=== PATIENT | female | born 1955 | race Caucasian/White ===

== ENCOUNTER 2018-01-28 15:33 | Emergency (ER) | payer MEDICARE, MEDICAID, OTHER ==
[2018-01-28 16:11] LABS: ADD MAN DIFF? NO
[2018-01-28 16:12] LABS: BASO # 0.1 x10^3/uL (0.0-0.2); BASO % 1 % (0-3); EOS # 0.2 x10^3/uL (0.0-0.7); EOS % 2 % (0-3); LYMPH # 2.1 x10^3/uL (1.0-4.8); LYMPH % 23 % (24-48); MEAN CORPUSCULAR HEMOGLOBIN 31 pg (25-35); MEAN CORPUSCULAR HGB CONC 34 g/dL (31-37); MEAN CORPUSCULAR VOLUME 92 fL (79-100); MONO # 0.5 x10^3/uL (0.0-1.1); MONO % 6 % (0-9); NEUT # 6.3 x10^3uL (1.8-7.7); NEUT % 69 % (31-73); PLATELET COUNT 135 x10^3/uL (140-400); RED BLOOD COUNT 4.13 x10^6/uL (3.50-5.40); RED CELL DISTRIBUTION WIDTH 13.5 % (11.5-14.5); WHITE BLOOD COUNT 9.2 x10^3/uL (4.0-11.0)
[2018-01-28 16:22] LABS: PROTHROMBIN TIME PATIENT 12.2 SEC (11.7-14.0)
[2018-01-28 16:27] LABS: ANION GAP 8 (6-14); BLOOD UREA NITROGEN 20 mg/dL (7-20); BUN/CREATININE RATIO 20 (6-20); CALCIUM 8.8 mg/dL (8.5-10.1); CARBON DIOXIDE 27 mmol/L (21-32); CHLORIDE 101 mmol/L (98-107); GFR 56.4; GLUCOSE 346 mg/dL (70-99); POTASSIUM 4.4 mmol/L (3.5-5.1); SODIUM 136 mmol/L (136-145)
[2018-01-28 16:28] LABS: D-DIMER 0.29 ug/mlFEU (0.00-0.50)
[2018-01-28 16:33] LABS: ALBUMIN 3.8 g/dL (3.4-5.0); ALBUMIN/GLOBULIN RATIO 1.3 (1.0-1.7); ALK PHOS 83 U/L (46-116); ALT (SGPT) 23 U/L (14-59); AST (SGOT) 16 U/L (15-37); LIPASE 183 U/L (73-393); MAGNESIUM 1.6 mg/dL (1.8-2.4); TOTAL BILIRUBIN 0.4 mg/dL (0.2-1.0); TOTAL PROTEIN 6.7 g/dL (6.4-8.2)
[2018-01-28 16:36] LABS: TROPONINI < 0.017 ng/mL (0.000-0.055)
[2018-01-28 16:41] LABS: NT-PRO BNP 208 pg/mL (0-124)
[2018-01-28 16:41] LABS: CKMB MASS 0.9 ng/mL (0.0-3.6); CREATINE KINASE 64 U/L (26-192)
[2018-01-28 17:26] LABS: BILIRUBIN,URINE NEGATIVE (NEG); CLARITY,URINE CLEAR; COLOR,URINE YELLOW; GLUCOSE,URINE 500 mg/dL (NEG); NITRITE,URINE NEGATIVE (NEG); PH,URINE 5.5; PROTEIN,URINE NEGATIVE (NEG-TRACE)
[2018-01-28] MEDS ORDERED: CONTRAST GIVEN. MC (17:30)
[2018-01-28] MEDS: IOHEXOL 300 MG/ML 100ML VIAL. IV (17:38)
[2018-01-28 17:49] LABS: BACTERIA,URINE FEW /HPF (0-FEW); HYALINE CASTS, URINE OCCASIONAL /HPF; RBC,URINE 0 /HPF (0-2); SQUAMOUS EPITHELIAL CELL,UR FEW /LPF; YEAST,URINE PRESENT /HPF
== END 2018-01-28 18:55 | disposition home or self-care (01) ==
LOC: ER 15:33
DX: R07.2 Precordial pain (principal); J44.9 Chronic obstructive pulmonary disease, unspecified; E11.9 Type 2 diabetes mellitus without complications; E78.00 Pure hypercholesterolemia, unspecified; I10 Essential (primary) hypertension; G89.29 Other chronic pain; Z87.891 Personal history of nicotine dependence
CPT/HCPCS: 36415; 71045; 71260; 80053; 81001; 82553; 83690; 83735; 83880; 84484; 85025; 85379; 85610; 93005; 99285-25; Q9967

== ENCOUNTER → 2018-05-06 | Outpatient (CLI) | payer MEDICARE, MEDICAID ==
[2018-01-28 18:28] VITALS: BP 180/90
[~2018-05-06] MED LIST: ASPI81TA59 PO; ATOR20TA PO; Doxycycline Hyclate PO; INSU100I17 SQ; Insulin Detemir SQ; LISI-338 PO
--- NOTE | 2018-05-06 12:00 | RAD ---
DATE: May 06, 2018 EXAM: DIGITAL SCREEN BILAT W/CAD HISTORY: Screening study. COMPARISON: April 26, 2008 This study was interpreted with the benefit of Computerized Aided Detection (CAD). FINDINGS: Breast Density: FATTY The breast parenchyma is primarily fatty replaced. Breast parenchyma level density A.. There is a new small nodule within the medial aspect of the left breast just inferior to the nipple line. Recommend focal compression views in the CC and MLO projections and a 90 degree lateral medial view for further evaluation followed by left breast sonography. No clustering of pleomorphic microcalcifications are evident. The right breast is unremarkable. IMPRESSION: New nodule of the left breast. Additional imaging is needed. BI-RADS CATEGORY: 0 INCOMPLETE: NEEDS ADDITIONAL IMAGING EVALUATION AND/OR PRIOR MAMMOGRAMS FOR COMPARISON. RECOMMENDED FOLLOW-UP: ADD ADDITIONAL IMAGING PQRS compliance statement: Patient information was entered into a reminder system with a target due date now for the next imaging study. Mammography is a sensitive method for finding small breast cancers, but it does not detect them all and is not a substitute for careful clinical examination. A negative mammogram does not negate a clinically suspicious finding and should not result in delay in biopsying a clinically suspicious abnormality. "Our facility is accredited by the [employer] Mammography [employer]." The patient's breast density may affect the ability of mammography to detect breast cancer. There are 4 categories of breast density, A, B, C and D. Breast density A means that most of the breast tissue is replaced with adipose tissue and therefore is not dense. Breast density B means that the breast tissue is mildly dense and scattered. Breast density C means that the breast tissue is heterogeneously dense. Breast density D means that the breast tissue is very dense. Breast densities especially C and D may decrease the sensitivity of mammography to detect breast cancer. Therefore, the patient may benefit from 3-D breast mammography (3D breast tomography) as a part of their screening mammogram. Insurance may or may not pay for this additional imaging. The patient's breast density based on today's mammogram is category A.
== END | disposition home or self-care (01) ==
LOC: MAMMO 11:03
PROVIDERS: ATTEND Nurse Practitioner Family
DX: Z12.31 Encounter for screening mammogram for malignant neoplasm of breast (principal)
CPT/HCPCS: 77067

== ENCOUNTER → 2018-05-21 | Outpatient (CLI) | payer MEDICARE, MEDICAID ==
[2018-01-28 18:28] VITALS: BP 180/90
--- NOTE | 2018-05-21 12:27 | RAD ---
DATE: 05/21/2018 EXAM: MAMMO ESTRELLA REHANG LT, BREAST LEFT HISTORY: Suspicious screening study COMPARISON: 05/06/2018 This study was interpreted with the benefit of Computerized Aided Detection (CAD). Breast Density: SCATTERED The breast parenchyma shows scattered fibroglandular densities. Breast parenchyma level B. FINDINGS: Additional spot compression views were obtained as well as CC tomosynthesis images. These additional views confirm the presence of a small 5 mm nodule in the medial aspect of the left breast at approximately the 9:00 location. Its margins are slightly lobulated. No microcalcifications are seen. Left breast ultrasound, 05/21/2018: A targeted ultrasound exam of the left breast was performed. At the 9:30 location approximately 5 cm in the nipple there is a small elongated hypoechoic nodule. It is wider than tall. It measures 2 x 4 x 6 mm. There are only faint low level internal echoes. Its margins are slightly lobulated but smooth. There is no significant posterior acoustic enhancement or shadowing. It has a fairly benign appearance and may be a complicated cyst. This probably corresponds to the mammographic abnormality. No other sonographic abnormality was seen in this region of the left breast. IMPRESSION: Probably benign left breast nodule as described above. Follow-up left mammography and ultrasound in 6 months is suggested. BI-RADS CATEGORY: 3 PROBABLY BENIGN FINDING(S)-SHORT INTERVAL FOLLOW-UP SUGGESTED RECOMMENDED FOLLOW-UP: 6M 6 MONTH FOLLOW-UP PQRS compliance statement: Patient information was entered into a reminder system with a target due date for the next mammogram. Mammography is a sensitive method for finding small breast cancers, but it does not detect them all and is not a substitute for careful clinical examination. A negative mammogram does not negate a clinically suspicious finding and should not result in delay in biopsying a clinically suspicious abnormality. "Our facility is accredited by the [employer] Mammography [employer]."
== END | disposition home or self-care (01) ==
LOC: MAMMO 11:06
PROVIDERS: ATTEND Family Medicine
DX: R92.8 Other abnormal and inconclusive findings on diagnostic imaging of breast (principal)
CPT/HCPCS: 76641; 77065; G0279; 77061

== ENCOUNTER 2019-05-31 16:25 | Emergency (ER) | payer OTHER, MEDICAID ==
[~2019-05-31] VITALS: Ht 147.3 cm; Wt 57.6 kg
--- NOTE | 2019-05-31 17:28 | PHYS DOC ---
Past Medical History Past Medical History: Asthma, Bronchitis, COPD, Diabetes-Type II, High Ch olesterol, Hypertension, Other Additional Past Medical Histor: chronic back pain Past Surgical History: Cholecystectomy, Tonsillectomy Additional Past Surgical Histo: , left ankle, rods in right hip, Alcohol Use: None Drug Use: None Adult General Chief Complaint Chief Complaint: MECHANICAL FALL HPI HPI Patient is a 63 year old female patient who presents to the ED today complaining of mild throbbing intermittent right hip, right low back and left knee pain that began a couple minutes prior to coming to the ED after she slipped on a wet floor at the outside of her apartment and fell. Patient denies any loss of consciousness, denies hitting her head on the ground. She states her pain is worse on weight-bearing especially on the right side. She states immobilization relieves some of the pain. Patient denies any pain radiating to bilateral lower extremities. Denies any numbness or tingling to bilateral lower extremities. Denies any loss of bowel bladder function. Review of Systems Review of Systems Constitutional: Denies fever or chills [] Eyes: Denies change in visual acuity, redness, or eye pain [] HENT: Denies nasal congestion or sore throat [] Respiratory: Denies cough or shortness of breath [] Cardiovascular: No additional information not addressed in HPI [] GI: Denies abdominal pain, nausea, vomiting, bloody stools or diarrhea [] : Denies dysuria or hematuria [] Musculoskeletal: Reports left knee pain, right hip pain, right low back pain Integument: Denies rash or skin lesions [] Neurologic: Denies headache, focal weakness or sensory changes [] All other systems were reviewed and found to be within normal limits, except as documented in this note. Allergies Allergies Allergies Coded Allergies Type Severity Reaction Last Updated Verified No Known Drug Allergies 07/01/14 No Physical Exam Physical Exam Constitutional: Well developed, well nourished, no acute distress, non-toxic appearance. [] HENT: Normocephalic, atraumatic, bilateral external ears normal, oropharynx moist, no oral exudates, nose normal. [] Eyes: PERRLA, EOMI, conjunctiva normal, no discharge. [] Neck: Normal range of motion, no tenderness, supple, no stridor. [] Cardiovascular:Heart rate regular rhythm, no murmur [] Lungs & Thorax: Bilateral breath sounds clear to auscultation [] Abdomen: Bowel sounds normal, soft, no tenderness, no masses, no pulsatile masses. [] Skin: Warm, dry, no erythema, no rash. [] Back: No tenderness, no CVA tenderness. [] Extremities: Right hip with no obvious deformity, slight tenderness on palpation of the right lateral proximal hip. Full range of motion to the right hip. +2 right pedal pulse. Left knee with no obvious deformity. Tenderness on palpation of the left anterior knee. Full range of motion to the left knee. +2 left pedal pulse. Cap refill less than 2 seconds and left lower extremity. Sensation intact to the left leg. Neurologic: Alert and oriented X 3, normal motor function, normal sensory function, no focal deficits noted. [] Psychologic: Affect normal, judgement normal, mood normal. [] Current Patient Data Vital Signs Vital Signs Date Time Temp Pulse Resp B/P (MAP) Pulse Ox O2 Delivery O2 Flow Rate FiO2 05/31/19 17:25 97.7 71 16 178/72 (107) 95 Room Air 97.7 EKG EKG [] Radiology/Procedures Radiology/Procedures [] Course & Med Decision Making Course & Med Decision Making Pertinent Labs and Imaging studies reviewed. (See chart for details) This is a 63-year-old female patient presenting to the ED today with left knee pain, right hip pain and low back pain after falling. Right hip x-rays including pelvis, lumbar spine and left knee xrays interpreted by were negative for any acute findings. Patient was discharged to home. Tylenol/Motrin for pain. Follow-up with orthopedic doctor in one week Liliana Disclaimer Dragon Disclaimer This electronic medical record was generated, in whole or in part, using a voice recognition dictation system. Departure Departure Impression: Primary Impression: Fall from standing Additional Impressions: Lumbar contusion Contusion of right hip Contusion of left knee Disposition: 01 HOME, SELF-CARE Condition: STABLE Referrals: NOMI MARTIN (PCP) follow up next week TOM PONCE MD follow up next week Patient Instructions: Contusion, [id number] Additional Instructions: You were evaluated in the emergency room for low back pain, right hip pain and left knee pain after falling, your x-rays of the right hip including pelvis, low back, and left knee were negative for any acute findings. Try to ice and elevate the affected areas. Take Tylenol/Motrin for pain. Follow-up with your own doctor in the next 1-2 weeks. Scripts Cyclobenzaprine Hcl (CYCLOBENZAPRINE HCL) 10 Mg Tablet 1 TAB PO TID, #30 TAB Prov: RACHNA HARDEN ANTONI 05/31/19 Problem Qualifiers Primary Impression: Fall from standing Encounter type: initial encounter Qualified Codes: W19.XXXA - Unspecified fall, initial encounter Additional Impressions: Lumbar contusion Encounter type: initial encounter Qualified Codes: S30.0XXA - Contusion of lower back and pelvis, initial encounter Contusion of right hip Encounter type: initial encounter Qualified Codes: S70.01XA - Contusion of right hip, initial encounter Contusion of left knee Encounter type: initial encounter Qualified Codes: S80.02XA - Contusion of left knee, initial encounter FEDERICARACHNA Brennan ANTONI May 31, 2019 17:28
[2019-05-31] MEDS ORDERED: CYCL10TA2 PO (18:21)
[2019-05-31 18:25] VITALS: BP 167/71
--- NOTE | 2019-05-31 19:15 | RAD ---
EXAM: AP pelvis, AP and lateral views right hip DATE: 05/31/2019 5:05 PM INDICATION: Fall, right hip pain COMPARISON: No Prior FINDINGS/ IMPRESSION: IM nail fixation right hip is partially profiled without definite hardware competition. No acute fracture or dislocation. Iliac crest enthesopathy. Moderate colonic stool content is seen. Vascular calcifications are noted Electronically signed by: Josr Cronin MD (05/31/2019 7:12 PM) [facility]
--- NOTE | 2019-05-31 19:16 | RAD ---
EXAM: AP, oblique, lateral and tangential patellar views left knee DATE: 05/31/2019 5:01 PM INDICATION: Fall, pain COMPARISON: No Prior FINDINGS/ IMPRESSION: No evidence of acute fracture or dislocation. Joint spaces are preserved without significant degenerative/proliferative change. Neutral patellar tracking. No joint effusion. Atherosclerotic vascular calcifications are seen. Electronically signed by: Josr Cronin MD (05/31/2019 7:13 PM) [facility]
--- NOTE | 2019-05-31 19:18 | RAD ---
EXAM: AP, lateral and lumbosacral spot views of the lumbar spine DATE: 05/31/2019 6:29 PM INDICATION: Fall, back pain COMPARISON: No Prior FINDINGS: Vertebral body heights are preserved. Rightward curvature lumbar spine apex L3. Moderate to severe L5-S1 disc height loss. Small endplate osteophytes are seen. Vascular calcifications are seen. No spondylolisthesis. Straightening of the normal lumbar lordosis. Right upper quadrant cholecystectomy clips are seen. Vascular calcifications are seen. Moderate colonic stool content. IMPRESSION: 1. Multilevel spondylosis as above 2. Negative acute fracture or subluxation. Electronically signed by: Josr Cronin MD (05/31/2019 7:15 PM) [facility]
== END 2019-05-31 18:33 | disposition home or self-care (01) ==
LOC: ER 16:25
DX: S30.0XXA Contusion of lower back and pelvis, initial encounter (principal); S70.01XA Contusion of right hip, initial encounter; S80.02XA Contusion of left knee, initial encounter; J44.9 Chronic obstructive pulmonary disease, unspecified; E78.00 Pure hypercholesterolemia, unspecified; I10 Essential (primary) hypertension; E11.9 Type 2 diabetes mellitus without complications; Z90.49 Acquired absence of other specified parts of digestive tract; W01.0XXA Fall on same level from slipping, tripping and stumbling without subsequent striking against object, initial encounter; Y93.89 Activity, other specified; Y92.89 Other specified places as the place of occurrence of the external cause; Y99.8 Other external cause status
CPT/HCPCS: 72100; 73502; 73564; 99284

== ENCOUNTER → 2021-05-10 | Outpatient (CLI) | payer MEDICARE, MEDICAID ==
[~2021-05-10] MED LIST changes: +CYCL10TA19 PO; -LISI-338 PO; +LISI5TAB15 PO
--- NOTE | 2021-05-10 11:16 | RAD ---
PROCEDURE: US BREAST LT, MG DIGITAL BILAT DIAGNOSTIC MAMMO WITH ESTRELLA HISTORY: The patient is 65 years old and is seen for Reason: F/U Left Breast / Spl. Instructions: / History: . COMPARISON: May 21, 2019 mammogram and ultrasound. Mammogram May 06, 2018 TECHNIQUE: CC and MLO views of both breasts were obtained. Images were processed by the [employer] computer-aided detection system. Ultrasound left breast DENSITY: There are scattered fibroglandular densities. FINDINGS: Right mammogram: No developing mass, suspicious calcifications or architectural distortion. Left mammogram: Resolved previously seen left medial breast mass approximately 0.5 cm from the nipple . Lobulated mass within the left medial breast approximately 6 cm from the nipple measures 0.7 cm, po tentially similar compared to prior. Left ultrasound: Previously identified cystic lesion within the left breast is not identified on the current examination. Hypoechoic lesion within the left breast 9:00 position approximately 6 cm from t he nipple measures 0.9 x 0.4 x 0.4 cm. No suspicious posterior shadowing. Potentially corresponding w ith mammographic finding. IMPRESSION: 1. Hypoechoic solid lesion within the left breast 9:00 position potentially corresponding with mammo graphic finding, may represent fibroadenoma. Recommend 6 month left breast ultrasound follow-up. Recommend annual screening mammograms per [employer] guidelines. Patient will be due in six months. BI-RADS category 3 Probably benign Our clinic nurse has been instructed to assist with communicating findings and recommendations to the patient's referring physician and in scheduling follow-up. Patient entered into a reminder system for annual screening mammogram. Electronically signed by: Charles Castrejon DO (05/10/2021 11:13 AM) [id number]
== END ==
LOC: MAMMO 10:48
PROVIDERS: ATTEND Nurse Practitioner Family
DX: N64.89 Other specified disorders of breast (principal)
CPT/HCPCS: 76641; 77066; G0279; 77062

== ENCOUNTER → 2021-10-24 | Outpatient (CLI) | payer MEDICARE, MEDICAID ==
--- NOTE | 2021-10-24 10:57 | RAD ---
EXAMINATION: US BREAST LT CLINICAL HISTORY: Six-month follow-up left breast mass TECHNIQUE: Targeted grayscale scale and color Doppler images medial left breast and left axilla. COMPARISON: Bilateral diagnostic mammogram and left breast ultrasound 05/10/2021 FINDINGS: The previously noted hypoechoic mass at 9:00 position is not definitively visualized on this exam. Th is may be related to interval resolution of a cyst. Redemonstration of nonspecific prominent left axi llary lymph node. IMPRESSION: No evidence of malignancy. BI-RADS ASSESSMENT: Category 2: Benign RECOMMENDATION: Annual bilateral mammogram in 6 months. Targeted left breast ultrasound could also be performed at th at time if there is still mammographic evidence of a mass or asymmetry in the medial left breast. PQRS compliance statement - Patient information was entered into a reminder system with a target due date for the next mammogram. "Our facility is accredited by the [employer] Mammography Program." Electronically signed by: Jeremias Lyons DO (10/24/2021 10:55 AM) [id number]
== END ==
LOC: US 09:45
PROVIDERS: ATTEND Family Medicine
DX: R92.8 Other abnormal and inconclusive findings on diagnostic imaging of breast (principal)
CPT/HCPCS: 76641